=== PATIENT | male | born 1985 | race Caucasian/White ===

== ENCOUNTER 2019-04-17 08:54 | Emergency (ER) | payer OTHER ==
[2019-04-17 09:08] VITALS: BP 142/90
--- NOTE | 2019-04-17 10:19 | ED Physician Documentation ---
History of Present Illness - Stated complaint Stated Complaint: RT TOE PX - Chief complaint Chief Complaint: Trauma Ext - Additonal information Additional information: This is a 33-year-old male who presents due to left base of the toe pain. Patient has a family history of gout, he states that 2 days ago he began having some discomfort at the base of his left toe which is worse with direct pressure especially in the dorsal aspect of the toe. He has noticed some mild redness over the area as well. The pain is been gradually increasing so he sought care today. He is from [place], [place], but will be living here for the next year an d does not have a primary care provider yet. He does not have a personal history of gout. He denies fever, chills, redness or pain in any other joint. There is no obvious trauma to the toe, no lacerations or wounds in the area. Review of Systems Constitutional: denies: Fever, Chills Nose: denies: Congestion Cardiac: denies: Chest pain / pressure Respiratory: denies: Dyspnea Skin: reports: Other (Redness of toe) Musculoskeletal: reports: Joint pain (Left toe) PD PAST MEDICAL HISTORY - Past Medical History Past Medical History: Yes Cardiovascular: High cholesterol - Past Surgical History Past Surgical History: Yes Ortho: Other - Present Medications Home Medications: Ambulatory Orders Medication Instructions Recorded Confirmed RX: Naproxen 500 mg PO BID 14 Days #30 tablet 04/17/19 predniSONE [Prednisone] 40 mg PO DAILY 5 Days #10 tablet 04/17/19 - Allergies Allergies/Adverse Reactions: Allergies Allergy/AdvReac Type Severity Reaction Status Date / Time No Known Drug Allergies Allergy Verified 04/17/19 09:07 - Social History Does the pt smoke?: No Smoking Status: Never smoker Does the pt drink ETOH?: Yes Does the pt have substance abuse?: No - Immunizations Immunizations are current?: No Immunizations: TDAP >10years/unknown - POLST Patient has POLST: No PD ED PE NORMAL - Free text exam Free text exam: GENERAL: Awake, alert HENT/Mouth: Mucus membranes are moist RESP: Normal respiratory effort CV: Regular rate and rhythm GI: Abdomen is soft, non-distended, No tenderness to palpation of all quadrants MSK: There is mild erythema and edema on the base of the left great toe. Patient is tender to palpation on the dorsal aspect as well as with flexion extension of the MTP joint. Capillary refill is excellent, sensation light touch intact, DP pulses are 2+ bilaterally. NEURO: Alert, oriented x3; gross movement and sensation intact Results - Vitals Vitals: Oxygen O2 Source Room air PD MEDICAL DECISION MAKING - ED course Complexity details: considered differential (Gout, fracture, dislocation, septic arthitis, pseudo-gout) ED course: Pt is non-toxic appearing, has localized swelling and pain of the right great toe. He has a family history and diet that raises suspicion for gout/crystal arthropathy as the cause of his symptoms. He is afebrile, non-toxic, and can move the joint, making septic arthritis unlikely. There is also no foot wound of obvious source for infection. XR shows no fracture or dislocation. I discussed attempting aspiration of the joint, though there is no large effusion on US, so this may be difficult. After discussion with the patient, we will treat for presumptive gout with NSAIDs and a steroid burst. He understands that if he has worsening or any signs of infection such as streaking redness, fever, involvement of other joints, or any other concerns whatsoever, he should return to the ED immediately. He verbalized understanding and was discharged. Departure - Departure Disposition: 01 Home, Self Care Clinical Impression: Podagra Condition: Good Instructions: Gout Attack Tx Follow-Up: Bonifacio Quiñones MD [Provider Admit Priv/Credential] - Within 1 week Prescriptions: RX: Naproxen 500 mg PO BID 14 Days #30 tablet predniSONE [Prednisone] 40 mg PO DAILY 5 Days #10 tablet Comments: He was seen today for swelling and pain of your toe which appears to be gout. Please take the medications as prescribed, and keep an eye out for signs of infection such as fever, increasing redness streaking up your leg, or any other concerning symptoms. Return to the emergency department if your symptoms are worsening or not improving, or you have any signs of infection. Discharge Date/Time: 04/17/19 12:07
--- NOTE | 2019-04-17 10:21 | XRAY Report ---
Reason: toe pain Procedure Date: 04/17/2019 Accession Number: [id number] / [id number] Procedure: XR - Toe(s) RT CPT Code: FULL RESULT: EXAM: RIGHT TOE RADIOGRAPHY EXAM DATE: 04/17/2019 09:53 AM. CLINICAL HISTORY: First toe pain, no known injury. Family history of gout. COMPARISON: None. TECHNIQUE: 3 views. FINDINGS: Bones: No fracture or bone lesion. 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 No subluxations. Soft Tissues: No soft tissue swelling or soft tissue calcification. IMPRESSION: No discrete radiographic evidence of gout. Essentially negative right first toe radiography. [facility]
[2019-04-17] MEDS ORDERED: LIDOCAINE 1% 2 ML VIAL SUBQ STA (11:46)
== END 2019-04-17 12:07 | disposition home or self-care (01) ==
LOC: ED 08:54
DX: M10.9 Gout, unspecified (principal); Z82.69 Family history of other diseases of the musculoskeletal system and connective tissue
CPT/HCPCS: 73660; 99283; 99284